=== PATIENT | female | born 1965 | race African-American/Black ===

== ENCOUNTER 2024-06-28 10:22 | Outpatient (CLI) | payer OTHER, SELFPAY ==
[2024-06-28 11:31] LABS: Thyroid Stimulating Hormone 0.947 uIU/mL (0.465-4.680)
[2024-06-29 17:14] LABS: FSH 74.9 mIU/mL
[2024-07-05 22:34] LABS: Estradiol, Ultrasensitive 3 pg/mL
== END 2024-06-28 10:23 | disposition home or self-care (01) ==
LOC: ANHLAB 10:25
PROVIDERS: Referring Provider Internal Medicine Gastroenterology; Visit Provider Student in an Organized Health Care Education/Training Program
DX: B19.10 Unspecified viral hepatitis B without hepatic coma (principal)
CPT/HCPCS: 36415; 82670; 83001; 84443